=== PATIENT | female | born 1970 | race Caucasian/White ===

== ENCOUNTER → 2021-01-01 | Outpatient (CLI) | payer BC ==
--- NOTE | 2021-01-02 04:00 | REPPI ---
INDICATION: KIDNEY STONES COMPARISON: None. TECHNIQUE: Supine view of the abdomen and pelvis. FINDINGS: Evaluation is limited by technique and overlying bowel gas. Small right intrarenal calculi cannot be excluded. No organomegaly. No foreign body. Bowel gas pattern is nonspecific. Skeletal structures are intact. IMPRESSION: Cannot exclude small nonobstructing right renal calculus. <Electronically signed by Dominguez Graff > 01/02/21 [id number]
== END ==
LOC: M PLAIMG 15:17
PROVIDERS: ATTEND Urology
DX: N20.0 Calculus of kidney (principal)

== ENCOUNTER → 2021-08-27 | Outpatient (CLI) | payer BC ==
--- NOTE | 2021-08-27 12:59 | REP ---
INDICATION: FOREIGN BODY IN BLADDER, INITIAL ENCOUNTER. COMPARISON: 01/01/2021 TECHNIQUE: AP views of the abdomen were obtained. FINDINGS: Moderately extensive fecal debris is seen in the sigmoid and right colon. Less extensive stool is noted elsewhere. No radiopaque foreign body is identified in the region of the bladder or elsewhere. The visualized lower lung castillo are clear. IMPRESSION: No radiopaque foreign body is identified. 2. Mild constipation. <Electronically signed by Rodo De Santiago > 08/27/21 [id number]
== END ==
LOC: M PLALAB 12:20 → M PLAIMG 12:20
PROVIDERS: ATTEND Urology
DX: T19.1XXA Foreign body in bladder, initial encounter (principal)

== ENCOUNTER → 2022-09-01 | Outpatient (CLI) | payer BC | LOC: M PLAIMG 13:10 | PROVIDERS: ATTEND Nurse Practitioner Women's Health | DX: N20.0 Calculus of kidney (principal) ==

== ENCOUNTER → 2024-05-17 | Outpatient (CLI) | payer BC | LOC: M WHC 08:44 | PROVIDERS: ATTEND Nurse Practitioner Family | DX: Z12.31 Encounter for screening mammogram for malignant neoplasm of breast (principal) ==

== ENCOUNTER → 2024-05-17 | Outpatient (REF) | payer BC ==
[2024-05-19 15:37] LABS: HPV APTIMA Not Detected (Not Detected)
== END ==
LOC: M SFHCWAGY 12:16
PROVIDERS: ATTEND Nurse Practitioner Family
DX: Z12.72 Encounter for screening for malignant neoplasm of vagina (principal); Z11.51 Encounter for screening for human papillomavirus (HPV); Z01.419 Encounter for gynecological examination (general) (routine) without abnormal findings; Z77.9 Other contact with and (suspected) exposures hazardous to health; Z12.4 Encounter for screening for malignant neoplasm of cervix
CPT/HCPCS: 87624; G0123

== ENCOUNTER → 2025-05-28 | Outpatient (CLI) | payer BC | LOC: M WHC 07:08 | PROVIDERS: ATTEND Nurse Practitioner Family | DX: Z12.73 Encounter for screening for malignant neoplasm of ovary (principal); Z80.41 Family history of malignant neoplasm of ovary; R93.89 Abnormal findings on diagnostic imaging of other specified body structures ==

== ENCOUNTER → 2025-06-14 | Outpatient (CLI) | payer BC ==
[~2025-06-14] MED LIST: ISOVUE-370 76% 100 ML VIAL As Ordered ONE
== END ==
LOC: M RAD 16:04
PROVIDERS: ATTEND Nurse Practitioner Family
DX: R93.49 Abnormal radiologic findings on diagnostic imaging of other urinary organs (principal); K42.9 Umbilical hernia without obstruction or gangrene
CPT/HCPCS: 74178; Q9967

== ENCOUNTER → 2025-07-17 | Outpatient (CLI) | payer BC | LOC: M PLARAD 08:11 | PROVIDERS: ATTEND Nurse Practitioner Family | DX: R93.5 Abnormal findings on diagnostic imaging of other abdominal regions, including retroperitoneum (principal) | CPT/HCPCS: 78816; A9552 ==